=== PATIENT | female | born 1975 | race Caucasian/White ===

== ENCOUNTER 2024-05-31 08:54 | Emergency (ER) | payer BC ==
--- NOTE | 2024-05-31 10:04 | RAD REPORT ---
EXAMINATION: Shoulder Left 2+ Views CLINICAL INDICATION: Female, 48 years old. PAIN COMPARISON: No prior exam. FINDINGS: No acute fracture. The humeral head appears subluxed inferiorly. Ossifications overlying the superior joint space. Mild left AC joint degenerative changes. Other: n/a IMPRESSION: No acute osseous abnormality. Ossifications overlying the superior joint space may be intra-articular bodies. In addition, the humeral head appears inferiorly subluxed. The findings could indicate a shoulder effusion.
--- NOTE | 2024-05-31 10:07 | EDPHYS ---
Physician Documentation [facility] Name: Natalie Pool Age: 48 yrs Sex: Female : 1975 Arrival Date: 05/31/2024 Time: 08:54 Bed 11 Private MD: ED Physician Baljeet Prieto HPI: 05/31 09:40 48-year-old female with history of gastric sleeve now presents to the ED with left sp3 shoulder pain since around [place]. Patient states that she was getting out of her 's truck when her arm got stuck on the armrest and as she was getting out got pulled. Pain has been occurring since then and progressively getting worse. She is not having hard time with daily routine. Through her PCP she has an MRI scheduled at this facility on June 07. She lives in [facility]. She denies any numbness or tingling or loss of investigator vice. She has not seen an orthopedist and has not had an x-ray. Remainder of ROS negative.. Historical: - Allergies: 09:16 Codeine; insomnia; iw ROS: 09:43 Constitutional: Negative for fever, chills, and weight loss, Eyes: Negative for injury, sp3 pain, redness, and discharge, ENT: Negative for injury, pain, and discharge, Neck: Negative for injury, pain, and swelling, Cardiovascular: Negative for chest pain, palpitations, and edema, Respiratory: Negative for shortness of breath, cough, wheezing, and pleuritic chest pain, Abdomen/GI: Negative for abdominal pain, nausea, vomiting, diarrhea, and constipation, Skin: Negative for injury, rash, and discoloration, Neuro: Negative for headache, weakness, numbness, tingling, and seizure, Psych: Negative for depression, anxiety, suicide ideation, homicidal ideation, and hallucinations, Allergy/Immunology: Negative for hives, rash, and allergies, Endocrine: Negative for neck swelling, polydipsia, polyuria, polyphagia, and marked weight changes, Hematologic/Lymphatic: Negative for swollen nodes, abnormal bleeding, and unusual bruising, 09:43 All other systems are negative, Exam: 09:43 Constitutional: This is a well developed, well nourished patient who is awake, alert, sp3 and in no acute distress. Head/Face: Normocephalic, atraumatic. Eyes: Pupils equal round and reactive to light, extra-ocular motions intact. Lids and lashes normal. Conjunctiva and sclera are non-icteric and not injected. Cornea within normal limits. Periorbital areas with no swelling, redness, or edema. ENT: Nares patent. No nasal discharge, no septal abnormalities noted. External auditory canals are clear. Oropharynx with no redness, swelling, or masses, exudates, or evidence of obstruction, uvula midline. Mucous membranes moist. Neck: Trachea midline, no thyromegaly or masses palpated, and no cervical lymphadenopathy. Supple, full range of motion without nuchal rigidity, or vertebral point tenderness. No Meningismus. Chest/axilla: Normal chest wall appearance and motion. Nontender with no deformity. No lesions are appreciated. Cardiovascular: Regular rate and rhythm with a normal S1 and S2. No gallops, murmurs, or rubs. Normal PMI, no JVD. No pulse deficits. Respiratory: Lungs have equal breath sounds bilaterally, clear to auscultation and percussion. No rales, rhonchi or wheezes noted. No increased work of breathing, no retractions or nasal flaring. Abdomen/GI: Soft, non-tender, with normal bowel sounds. No distension or tympany. No guarding or rebound. No evidence of tenderness throughout. Back: No spinal tenderness. No costovertebral tenderness. Full range of motion. Skin: Warm, dry with normal turgor. Normal color with no rashes, no lesions, and no evidence of cellulitis. Neuro: Awake and alert, GCS 15, oriented to person, place, time, and situation. Cranial nerves II-XII grossly intact. Motor strength 5/5 in all extremities. Sensory grossly intact. Cerebellar exam normal. Normal gait. 09:43 Musculoskeletal/extremity: Left shoulder pain to palpation anterior over the rotator cuff. Pain on internal rotation consistent with rotator cuff injury. No pain at the scapula, clavicle, elbow or hand. Neurovascularly intact.. Vital Signs: 09:17 BP 139 / 94; Pulse 72; Resp 16; Temp 98.2; Pulse Ox 100% on R/A; Pain 7/10; iw 09:17 Pain Scale: Adult iw MDM: 09:13 Medical Screening Exam initiated sp3 09:44 Data reviewed: vital signs, nurses notes, radiologic studies. ED course: 48-year-old sp3 female with left shoulder pain for 2 months consistent with probable rotator cuff injury. Patient already has MRI scheduled. Will obtain x-ray here to ensure no bony abnormality and we will discharge her on prednisone p.o. for symptomatic control. She is already on meloxicam and Tylenol which was given to her by her surgeon who performed the gastric sleeve. Patient states she will obtain orthopedic consultation as well.. 10:05 ED course: X-ray demonstrates probable shoulder effusion. Will place patient in a sling sp3 and discharged on prednisone and orthopedic follow-up. Patient to keep her MRI appointment.. 05/31 09:18 Order name: Shoulder Left (2 View) XRAY; Complete Time: 10:05 sp3 05/31 10:08 Order name: Sling sp3 Administered Medications: No medications were administered Disposition Summary: 05/31/24 10:07 Discharge Ordered Notes: Location: Home sp3 Condition: Stable sp3 Diagnosis - Left shoulder effusion, left shoulder pain, rotator cuff injury sp3 Followup: sp3 - With: Galo Mota MD - When: Upon discharge from the Emergency Department - Reason: Recheck today's complaints Discharge Instructions: - Discharge Summary Sheet sp3 - Rotator Cuff Tendinitis sp3 - How to Use a Sling sp3 Forms: - Work release form iw - Medication Reconciliation Form sp3 - Antibiotic Education sp3 - Prescription Opioid Use sp3 - Patient Portal Instructions sp3 - Leadership Thank You Letter sp3 Prescriptions: - Prednisone 20 mg Oral Tablet - take 2 tablets ORAL route once daily for 5 days; 10 tablet; Refills: 0, Product sp3 Selection Permitted Signatures: Dispatcher [employer] Katie Fair, SOWMYA RN iw Baljeet Prieto MD MD sp3
--- NOTE | 2024-05-31 10:07 | ER ---
Nurse's Notes [facility] Name: Natalie Pool Age: 48 yrs Sex: Female : 1975 Arrival Date: 05/31/2024 Time: 08:54 Bed 11 Private MD: Diagnosis: Left shoulder effusion, left shoulder pain, rotator cuff injury Presentation: 05/31 09:12 Chief complaint: Patient states: around [place] I was getting out of my husbands iw truck, my arm got caught and went up, I have limited ROM in left arm now , has MRI scheduled for next Wednesday , I am in pain. Coronavirus screen: At this time, the client does not indicate any symptoms associated with coronavirus-19. Ebola Screen: No symptoms or risks identified at this time. Initial Sepsis Screen: Does the patient meet any 2 criteria? No. Patient's initial sepsis screen is negative. Does the patient have a suspected source of infection? No. Patient's initial sepsis screen is negative. Risk Assessment: Do you want to hurt yourself or someone else? Patient reports no desire to harm self or others. Onset of symptoms was April 05, 2024. 09:12 Method Of Arrival: Ambulatory iw 09:12 Acuity: ISIAH 4 iw Triage Assessment: 09:15 General: Appears in no apparent distress. Behavior is calm, cooperative. iw Historical: - Allergies: 09:16 Codeine; insomnia; iw Screenin:41 [facility] ED Fall Risk Assessment (Adult) History of falling in the last 3 months, iw including since admission No falls in past 3 months (0 pts) Confusion or Disorientation No (0 pts) Intoxicated or Sedated No (0 pts) Impaired Gait No (0 pts) Mobility Assist Device Used No (0 pt) Altered Elimination No (0 pt) Score/Fall Risk Level 0 - 2 = Low Risk Oriented to surroundings, Maintained a safe environment. Abuse screen: Denies threats or abuse. Denies injuries from another. Nutritional screening: No deficits noted. Tuberculosis screening: No symptoms or risk factors identified. Assessment: 09:15 General: Appears in no apparent distress. Behavior is calm, cooperative. Pain: iw Complains of pain in anterior aspect of left shoulder and posterior aspect of left shoulder Pain currently is 9 out of 10 on a pain scale. Neuro: Level of Consciousness is awake, alert, obeys commands, Oriented to person, place, time, situation, Moves all extremities. Cardiovascular: Patient's skin is warm and dry. Respiratory: Respiratory effort is even, unlabored, Respiratory pattern is regular. Derm: Skin is intact, is healthy with good turgor. Musculoskeletal: Range of motion: limited in left shoulder. Vital Signs: 09:17 BP 139 / 94; Pulse 72; Resp 16; Temp 98.2; Pulse Ox 100% on R/A; Pain 7/10; iw 09:17 Pain Scale: Adult iw ED Course: 08:57 Patient arrived in ED. al6 09:07 Baljeet Prieto MD is Attending Physician. sp3 09:15 Triage completed. iw 09:16 Arm band placed on. iw 10:00 Shoulder Left (2 View) XRAY In Process Unspecified. EDMS 10:06 Galo Mota MD is Referral Physician. sp3 10:15 Forest Abdalla, RN is Primary Nurse. ll1 Administered Medications: No medications were administered Outcome: 10:07 Discharge ordered by . sp3 10:42 Patient left the ED. iw Signatures: Dispatcher [employer] EDMS Katie Jernigan RN RN iw Forest Abdalla RN RN ll1 Baljeet Prieto MD MD sp3 Shelby Santiago al6
[2024-05-31 13:05] VITALS: BP 139/94; TEMP 98.2; O2SAT 100
== END 2024-05-31 10:42 | disposition home or self-care (01) ==
LOC: ER 08:54
DX: M25.412 Effusion, left shoulder (principal); S46.002A Unspecified injury of muscle(s) and tendon(s) of the rotator cuff of left shoulder, initial encounter